=== PATIENT | female | born 1940 | race Caucasian/White ===

== ENCOUNTER 2016-07-02 17:43 | Emergency (ER) | payer BC, OTHER ==
[~2016-07-02] VITALS: Ht 165.1 cm; Wt 61.4 kg
[~2016-07-02 17:43] MED LIST: ASCA500 PO; CLTP PO; ESTROGEN; HRBLS PO; LEVO-366 PO; POTAPOW29 PO; PROGESTERONE; VITA400C15 PO
[2016-07-02 17:52] VITALS: BP 113/71; PULSE 71; TEMP 36.6; O2SAT 97; Ht 165.1 cm; Wt 61.4 kg
--- NOTE | 2016-07-02 18:17 | EMERGENCY ROOM VISIT NOTE ---
ED Visit Note First contact with patient: 18:09 Patient was seen by our PA/CLINICAL APPEALS AUDITOR. I was involved in the patient's care and did evaluate the patient myself. I was involved in the care throughout the ER stay. The patient presents with dental pain. She will be treated with antibiotics. She has an upcoming dental appointment.
[2016-07-02] MEDS ORDERED: AMOXICILLIN 250 MG CAP PO STA (18:19)
--- NOTE | 2016-07-02 18:19 | EMERGENCY ROOM VISIT NOTE ---
ED Visit Note First contact with patient: 18:09 CHIEF COMPLAINT: Toothache HISTORY OF PRESENT ILLNESS: This 76-year-old female presents the ER with chief complaint of right upper tooth pain that started a few days ago and is getting worse. The patient called a dentist and has an appointment for Tuesday. The patient has been taking Aleve intermittently. The patient denies any facial swelling but does admit that the pain is radiating up to the right side of her face. Patient denies any fever. REVIEW OF SYSTEMS: 6 system review was performed and was negative unless stated otherwise in history of present illness. PMH: The patient is healthy; right sciatica SOCIAL HISTORY: Patient denies any tobacco or alcohol use. PHYSICAL EXAM: Vital Signs: Were reviewed Reviewed Nurse's notes. GEN.: 68-year -old white female appears in no acute distress. MENTAL Status: Alert and oriented 3. FACE: No erythema or edema noted. MOUTH: The #6 tooth with posterior decay noted. This tooth is tender to percussion. Surrounding gingiva without erythema or edema. NECK: Supple, no lymphadenopathy noted EMERGENCY COURSE: The patient was evaluated and was offered pain medication but she declined. She did not want anything that she could not drive. She states that she will just take Aleve. The patient was given amoxicillin 500 mg by mouth while in the emergency room. The patient was independently evaluated by Dr. Black who agrees with treatment plan. The patient was discharged home in stable condition. DIAGNOSIS: Dental caries and dentalgia DISCHARGE INSTRUCTIONS & TREATMENT: Make sure you take Aleve every 12 hours as directed on the label. Take amoxicillin as prescribed. Keep scheduled appointment with your dentist on Tuesday for definitive care. Current/Historical Medications Scheduled Ascorbic Acid (Vitamin C *), 500 MG PO DAILY Calcium/Vitamin D (Caltrate 600 Plus *), 1 TAB PO DAILY Cyanocobalamin (Vitamin B-12), 250 MCG PO DAILY Herbals (Herbals), 0 : PO BLANK Levofloxacin (Levaquin), 500 MG PO DAILY Multivitamin (Multivitamin), 1 TAB PO DAILY Pyridoxine (Vitamin B6), 100 MG PO DAILY Tocopheryl Acet,Dl-Alpha (Vitamin E), 400 INTER.UNIT PO DAILY Zinc Sulfate (Zinc Sulfate), 220 MG PO DAILY [Potassium Gluconate], 200 MG PO DAILY Miscellaneous Medications [Estrogen] [Progesterone] Allergies Coded Allergies: Fluoxetine (Unverified Allergy, Mild, UNKNOWN, 04/04/09) SHELLFISH (Unverified Allergy, Mild, UNKNOWN, 09/29/08) Sulfa Drugs (Verified Allergy, Unknown, 04/04/09) Vital Signs Date Time Temp Pulse Resp B/P Pulse Ox O2 Delivery O2 Flow Rate FiO2 07/02/16 17:52 36.6 71 18 113/71 97 Room Air Departure Information Referrals Camilo Andino D.O. (PCP) Patient Instructions [facility]
[2016-07-02] MEDS ORDERED: AMOX500C3 PO (18:21)
[2016-07-02] MEDS ORDERED: ASCO500T16 PO (18:58)
[2016-07-02] MEDS ORDERED: VITA400C3 PO (18:58)
[2016-07-02] MEDS ORDERED: MAGN400T6 PO (18:58)
[2016-07-02] MEDS ORDERED: GINS1CAP PO (18:58)
[2016-07-02] MEDS ORDERED: ESTR1 PO (18:58)
[2016-07-02] MEDS ORDERED: MEDR2.5T PO (18:58)
[2016-07-02] MEDS ORDERED: CALCTAB7 PO (18:58)
[2016-07-02] MEDS ORDERED: PYRI100T4 PO (20:43)
[2016-07-02] MEDS ORDERED: CYAN250T PO (20:43)
[2016-07-02] MEDS ORDERED: ZINC1CAP PO (20:43)
[2016-07-02] MEDS ORDERED: MULT-506 PO (20:43)
== END 2016-07-02 18:28 | disposition home or self-care (01) ==
LOC: C.EDB 17:45 → C.EDD 18:28
DX: K08.89 Other specified disorders of teeth and supporting structures (principal); K02.9 Dental caries, unspecified; M54.31 Sciatica, right side; Z79.899 Other long term (current) drug therapy

== ENCOUNTER 2016-08-30 15:48 | Emergency (ER) | payer OTHER ==
[~2016-08-30] VITALS: Ht 165.1 cm; Wt 61.0 kg
[~2016-08-30 15:48] MED LIST changes: -ASCA500 PO; +ASCO500T16 PO; +CALCTAB7 PO; -CLTP PO; +CYAN250T PO; +ESTR1 PO; -ESTROGEN; +GINS1CAP PO; -HRBLS PO; -LEVO-366 PO; +MAGN400T6 PO; +MEDR2.5T PO; +MULT-506 PO; -PROGESTERONE; +PYRI100T4 PO; -VITA400C15 PO; +VITA400C3 PO; +ZINC1CAP PO
[2016-08-30 15:52] VITALS: TEMP 36.8; Ht 165.1 cm; Wt 61.0 kg
--- NOTE | 2016-08-30 16:59 | EMERGENCY ROOM VISIT NOTE ---
ED Visit Note First contact with patient: 16:43 Patient seen and evaluated bedside. Patient well-appearing, involved tooth is her to previously been worked on and have her cannot done by her dentist. Agree with the physician shipping and receiving assistant's plan of treatment and close follow-up with the dentist at this time. Patient with no other complaints or injuries, no evidence of bleeding from the socket or, gumline, no fluctuant areas, no difficulty swallowing or breathing, no mucocutaneous lesions.
[2016-08-30 17:16] VITALS: BP 127/72; PULSE 72; O2SAT 99
--- NOTE | 2016-08-31 17:40 | EMERGENCY ROOM VISIT NOTE ---
ED Visit Note First contact with patient: 16:43 Chief Complaint: Lost a temporary filling out of 1 of my teeth. History of Present Illness: Ms. Yang is a 76-year-old white female who ambulates into the ED complaining of a lost temporary filling from tooth #6. Patient reports a few hours ago she was eating and loss the temporary filling from her tooth. She attempted to contact her dentist but was unsuccessful. She has no other complaints at this time and denies any associated symptoms including dental pain, fevers, chills. Review of Systems: As noted above in history of present illness. Past Medical History: Bronchitis, chronic back pain, status post bilateral oophorectomy Current Medications: Medications Dose Route/Sig Max Daily Dose Days Date Category Mag-Ox (Magnesium Oxide) 400 Mg Tab 400 Mg PO DAILY 07/02/16 Reported Provera (Medroxyprogesterone Acetate) 2.5 Mg Tab 2.5 Mg PO DAILY 07/02/16 Reported Estrace (Estradiol) 1 Mg Tab 1 Mg PO DAILY 07/02/16 Reported Ginseng 100 Mg Cap 1 Cap PO DAILY 07/02/16 Reported Caltrate 600 Plus (Calcium Carbonate-Vitamin D W/) 1 Tab Tab 1 Tab PO DAILY 07/02/16 Reported Vitamin E 400 Iu (Vitamin E) 400 Unit Cap 400 Inter.unit PO DAILY 07/02/16 Reported Ascorbic Acid 500 Mg Tab 500 Mg PO DAILY 07/02/16 Reported [Potassium Gluconate] 200 Mg PO DAILY 08/29/07 Reported Zinc Sulfate 220 Mg Cap 220 Mg PO DAILY 09/29/08 Reported Vitamin B-12 (Cyanocobalamin) 250 Mcg Tab 250 Mcg PO DAILY 09/29/08 Reported Vitamin B6 (Pyridoxine HCl) 100 Mg Tab 100 Mg PO DAILY 09/29/08 Reported Multivitamin (Multivitamins) Tab 1 Tab PO DAILY 09/29/08 Reported Allergies to Medications: Fluoxetine, phenothiazine, sulfa. Social History: Patient is currently employed; she feels safe in her home environment; she denies tobacco and alcohol use. Physical Examination: Vital Signs: Date Time Temp Pulse Resp B/P (MAP) Pulse Ox O2 Delivery O2 Flow Rate FiO2 08/30/16 17:16 72 18 127/72 99 08/30/16 15:52 36.8 66 18 138/66 99 Room Air GENERAL: 76-year-old female in no acute distress, nontoxic-appearing, afebrile and hemodynamically stable. NEUROLOGICAL: Awake, alert and oriented to person, place and time. Answering questions appropriately and following commands. Normal gait. Good hand eye coordination. SKIN: Warm, dry and pink. HEENT: Atraumatic and normocephalic. Tooth #6 reveals a missing filling. There is no local erythema or edema. There is no bleeding. There is no tenderness in this area. Oral cavity moist and pink. Pharynx is nonerythematous or edematous. Speech normal. No lymphadenopathy. ED Course: Patient is assessed as noted above. Patient's case was reviewed with Dr. tang; she probably assessed the patient we agreed on diagnostic approach, treatment, disposition and plan. Clinical Impression: Broken tooth. Missing filling from tooth #6. Disposition: Patient discharged home in stable condition; prior to departure she was reassessed and subjectively reported she was pain and symptom-free. Plan: Patient was encouraged to cover the area with dental wax follow-up with dentistry as soon as possible. Patient was educated on signs of infection and she was encouraged return to the ED for any signs of infection, uncontrolled pain or any new/concerning symptoms.
== END 2016-08-30 17:17 | disposition home or self-care (01) ==
LOC: C.EDB 15:49 → C.EDD 17:17
DX: S02.5XXA Fracture of tooth (traumatic), initial encounter for closed fracture (principal); K08.59 Other unsatisfactory restoration of tooth; W22.8XXA Striking against or struck by other objects, initial encounter; Y93.89 Activity, other specified; Y99.8 Other external cause status; Z87.09 Personal history of other diseases of the respiratory system; Z90.722 Acquired absence of ovaries, bilateral

== ENCOUNTER 2017-01-26 18:22 | Emergency (ER) | payer OTHER ==
[~2017-01-26] VITALS: Ht 165.1 cm; Wt 60.1 kg
[2017-01-26 18:30] VITALS: BP 159/81; PULSE 88; TEMP 36.6; O2SAT 97; Ht 165.1 cm; Wt 60.1 kg
[2017-01-26] MEDS ORDERED: PROG1CAP PO (18:45)
[2017-01-26] MEDS ORDERED: LIDOCAINE/EPINEPH/TETRACAINE 1 EA SYR EXT STA (19:18)
--- NOTE | 2017-01-26 20:23 | DIAGNOSTIC IMAGING REPORT ---
FACIAL BONES-MXILLOFAC WITHOUT CLINICAL HISTORY: 76 years-old Female presenting with fall, mandible/maxilla pain. Acute facial pain status post fall COMPARISON STUDY: None available TECHNIQUE: High-resolution CT scan of the facial bones is performed. Images are reviewed in the axial, sagittal, and coronal planes. IV contrast was not administered for this examination. A dose lowering technique was utilized adhering to the principles of ALARA. FINDINGS: There is no evidence of facial bone fracture. The bony orbits are intact and the orbital contents are within normal limits. The zygomatic arches, nasal bones, and pterygoid plates are preserved. The maxilla and mandible are intact. There are moderate degenerative changes of the temporal mandibular joints, left greater than right. There is a moderate sized periapical cyst involving the left maxillary first molar as seen on image 219 series 3. The paranasal sinuses and mastoid air cells are clear. Severe intervertebral disc space narrowing at C5-C6. Stepwise anterolisthesis of the cervical spine likely secondary to long-standing multilevel severe facet disease. There is leftward bowing and spurring of the nasal septum. Partially imaged brain parenchyma demonstrates moderate atrophy with ex vacuo ventriculomegaly. There is soft tissue swelling with laceration of the right paramedian mandibular soft tissues without opaque foreign body. IMPRESSION: 1. Mild soft tissue swelling with laceration of the right paramedian mandibular soft tissues. No associated acute fracture or dislocation. 2. Degenerative changes of the cervical spine as above. The above report was generated using voice recognition software. It may contain grammatical, syntax or spelling errors. Electronically signed by: Lupillo Billingsley M.D. 01/26/2017 8:22 PM Dictated Date/Time: 01/26/2017 8:18 PM
--- NOTE | 2017-01-26 20:36 | EMERGENCY ROOM VISIT NOTE ---
ED Visit Note First contact with patient: 19:09 This Patient was discussed with the physician product development assistant, Catherine Kaiser PA-C. The pertinent historical and physical exam findings were confirmed. I agree with the studies ordered and with the interpretations of these studies. I agree with the disposition and care plan.
--- NOTE | 2017-01-26 20:51 | EMERGENCY ROOM VISIT NOTE ---
History First contact with patient: 19:09 Chief Complaint: FALL Stated Complaint: FALL;CUT UNDER CHIN History of Present Illness The patient is a 76 year old female who presents to the Emergency Room with complaints of laceration on her chin and pain in her jaw. The patient tripped and fell onto her cement patio approximately 3 hours prior to arrival. The patient states she tripped over her feet, and fell from standing. When she fell , she struck her inferior chin on the cement. The patient states she has been using clean axis for the bleeding, and while the bleeding has improved, has not stopped. She is now complaining of pain in her bilateral jaw, and grinding and cracking when she opens and closes her jaw. Patient denies any loss of consciousness, nausea, vomiting, confusion, dizziness, visual disturbances, or other concerning symptoms. She is very worried about her job, and is concerned that it could be dislocated or fractured, she did have a previous surgery on her mandible. Tetanus vaccination is up-to-date. Review of Systems A complete 10 point review of systems was reviewed with the patient with pertinent positives and negatives as per history of present illness. All else were negative. Social History Smoking Status: Never Smoker Current/Historical Medications Scheduled Ascorbic Acid (Ascorbic Acid), 500 MG PO DAILY Calcium Carbonate-Vitamin D W/ (Caltrate 600 Plus), 1 TAB PO DAILY Cyanocobalamin (Vitamin B-12), 250 MCG PO DAILY Estradiol (Estrace), 1 MG PO DAILY Ginseng (Ginseng), 1 CAP PO DAILY Magnesium Oxide (Mag-Ox), 400 MG PO DAILY Medroxyprogesterone (Provera), 2.5 MG PO DAILY Multivitamin (Multivitamin), 1 TAB PO DAILY Pyridoxine (Vitamin B6), 100 MG PO DAILY Vitamin E (Vitamin E 400 Iu), 400 INTER.UNIT PO DAILY Zinc Sulfate (Zinc Sulfate), 220 MG PO DAILY [Potassium Gluconate], 200 MG PO DAILY Physical Exam Vital Signs Date Time Temp Pulse Resp B/P (MAP) Pulse Ox O2 Delivery O2 Flow Rate FiO2 01/26/17 18:30 36.6 88 18 159/81 97 Room Air Physical Exam Vital Signs: Reviewed Nurse's notes, vital signs stable. GENERAL: This is a 76- year-old white female, in no acute distress, well-developed, well-nourished. NEURO: The patient is alert and oriented to person place and time. No focal neurological defects. EYES: Pupils are round, equal, and react to light. EOMI. EARS: No hemotympanum. NECK: Supple. No cervical spine tenderness. FACE: No facial bone tenderness. There is some maxillary and mandibular tenderness on palpation with grinding and clicking of the TMJ bilaterally when the patient opens and closes her mouth. The mouth can open fully. The teeth are well aligned. No loose or chipped teeth. SKIN: There is a 2 cm laceration in the inferior chin, in the shape of a V. The edges gape apart with and without traction. There is minimal active bleeding and no foreign material in the wound. There are no deep structures present. Capillary refill less than two seconds. Normal sensation to light and sharp touch. Medical Decision & Procedures ER Provider Diagnostic Interpretation: FACIAL BONES-MXILLOFAC WITHOUT CLINICAL HISTORY: 76 years-old Female presenting with fall, mandible/maxilla pain. Acute facial pain status post fall COMPARISON STUDY: None available TECHNIQUE: High-resolution CT scan of the facial bones is performed. Images are reviewed in the axial, sagittal, and coronal planes. IV contrast was not administered for this examination. A dose lowering technique was utilized adhering to the principles of ALARA. FINDINGS: There is no evidence of facial bone fracture. The bony orbits are intact and the orbital contents are within normal limits. The zygomatic arches, nasal bones, and pterygoid plates are preserved. The maxilla and mandible are intact. There are moderate degenerative changes of the temporal mandibular joints, left greater than right. There is a moderate sized periapical cyst involving the left maxillary first molar as seen on image 219 series 3. The paranasal sinuses and mastoid air cells are clear. Severe intervertebral disc space narrowing at C5-C6. Stepwise anterolisthesis of the cervical spine likely secondary to long-standing multilevel severe facet disease. There is leftward bowing and spurring of the nasal septum. Partially imaged brain parenchyma demonstrates moderate atrophy with ex vacuo ventriculomegaly. There is soft tissue swelling with laceration of the right paramedian mandibular soft tissues without opaque foreign body. IMPRESSION: 1. Mild soft tissue swelling with laceration of the right paramedian mandibular soft tissues. No associated acute fracture or dislocation. 2. Degenerative changes of the cervical spine as above. The above report was generated using voice recognition software. It may contain grammatical, syntax or spelling errors. Electronically signed by: Lupillo Billingsley M.D. 01/26/2017 8:22 PM Dictated Date/Time: 01/26/2017 8:18 PM Medications Administered Medications (Trade) Dose Ordered Sig/Sarah Route Start Time Stop Time Status Last Admin Dose Admin Tetracaine/ Epinephrine/ Lidocaine (L.e.t. Gel 4%/ 1:100/0.5%) 1 ea UD STAT EXT 01/26/17 19:18 01/26/17 19:26 DC 01/26/17 19:41 1 EA Medical Decision The patient was seen and evaluated as above. She presented today complaining of laceration on her inferior chin as well as grinding, clicking, and discomfort in her bilateral jaw. She states she did have a previous surgery on her jaw, and is concerned that it could be fractured or dislocated. She does request imaging. LET gel was applied to the laceration and the patient was sent to CT scan. I did discuss the case with Dr. Painting, who did an dependently seen and evaluated the patient. When the patient returned, she was prepared for sutures. Verbal consent was obtained to perform the procedure. Using sterile technique the wound was cleansed with Betadine. The area was sterilely draped. The wound was copiously irrigated under pressure with sterile saline. The wound was explored and was as described above. The laceration was repaired using 8 simple interrupted 6-0 nylon sutures with the wound edges being well approximated. The patient tolerated the procedure well. Hemostasis was achieved. The area was cleaned with sterile saline and dressed with bacitracin ointment. CT results were reviewed with the patient and her friend at bedside. She did request a copy of the CT report, and she was provided with this on discharge. The patient was discharged home in good condition. Medication Reconcilliation Current Medication List: was personally reviewed by ks Blood Pressure Screening Patient's blood pressure: Normal blood pressure Impression Primary Impression: Fall Additional Impressions: TMJ arthritis Facial laceration Departure Information Dispostion Home / Self-Care Condition GOOD Referrals Camilo Andino D.O. (PCP) Patient Instructions ED Laceration Facial Sutr Tape, [email or web address] Additional Instructions You have received 8 sutures on your chin. These sutures are NOT dissolvable and WILL need to be removed by a health care provider in 4-6 days. You can return to the Emergency Department or contact your Primary Care Provider to have the sutures removed. CT scan did show no fracture or dislocation of the jaw. This did no some arthritic changes in the TMJ. There is a cyst noted on the left maxillary first molar, which I do recommend follow-up with your dentist. This scan did also show severe arthritic changes in the cervical spine. Proper wound care is essential for adequate wound healing and infection prevention. You can shower and clean the wound with soap and water. Do not scour over the wound, pat dry with a towel. Do not submerse the wound (i.e. bathe or dish wash) until the sutures have been removed. You can use an antibiotic ointment with a dressing over the wound for the next 3-4 days. After this time you may leave the wound dry and open to the air. If crust develops over the wound you can use a Q-tip to apply a 1:1 peroxide:water solution to clean the wound. Look for signs of infection of the wound including: increased pain, swelling, foul discharge, streaking, or increased temperature. If any of these are noticed you should return to the Emergency Department for further assessment and treatment. As with any laceration you may have received nerve damage to the surrounding tissues. This damage may or may not be permanent. You should keep the area covered with sunscreen for the first 6 months to 1 year when at risk for exposure to help minimize scarring. You can also use scar reducing creams or Vitamin E oil to help minimize scarring. You may use an ice pack on your jaw to help with discomfort. For pain control, you can use the following [id number] medicines (if >12 yo): Ibuprofen(Motrin, Advil) may be used for fever or pain. Use 600mg every six hours as needed. Take with food. Avoid using more than 2400mg in a 24 hour period. Do not use 2400mg per day for more than three consecutive days without physician direction. Prolonged inappropriate use can lead to stomach upset or ulcers. (AND/OR) Acetaminophen(Tylenol) may be used for fever or pain. Use 1000mg every six hours as needed. Avoid using more than 3000mg in a 24 hour period. Please follow up with your primary care provider in 2-3 days for recheck of your symptoms. Return to the emergency department if your symptoms worsen despite treatment course outlined above. Problem Qualifiers Primary Impression: Fall Encounter type: initial encounter Qualified Codes: W19.XXXA - Unspecified fall, initial encounter Additional Impressions: Facial laceration Encounter type: initial encounter Qualified Codes: S01.81XA - Laceration without foreign body of other part of head, initial encounter
== END 2017-01-26 21:05 | disposition home or self-care (01) ==
LOC: C.EDB 18:23 → C.EDD 21:05
DX: S01.81XA Laceration without foreign body of other part of head, initial encounter (principal); W18.09XA Striking against other object with subsequent fall, initial encounter; Z79.899 Other long term (current) drug therapy; M26.69 Other specified disorders of temporomandibular joint